=== PATIENT | male | born 1975 | race Two or more races ===

== ENCOUNTER 2020-06-12 17:08 | Inpatient (IN) | payer MEDICAID, OTHER ==
[~2020-06-12] VITALS: Ht 167.6 cm; Wt 55.3 kg
[2020-06-12] MEDS ORDERED: LORazepam 2 MG TABLET PO PRN (19:00)
[2020-06-12] MEDS ORDERED: ZOLPIDEM TARTRATE 10 MG TABLET PO PRN (19:00)
[2020-06-12] MEDS ORDERED: OLANZapine 5 MG RAPDIS TABLET PO PRN (19:00)
[2020-06-12 19:57] LABS: AMPHET/METH SCREEN,URINE NEGATIVE (NEGATIVE); BARBITURATE SCREEN, URINE NEGATIVE (NEGATIVE); BENZODIAZEPINES SCREEN,URINE NEGATIVE (NEGATIVE); CANNABINOID SCREEN,URINE NEGATIVE (NEGATIVE); COCAINE SCREEN,URINE NEGATIVE (NEGATIVE); METHADONE SCREEN, URINE NEGATIVE (NEGATIVE); OPIATE SCREEN,URINE NEGATIVE (NEGATIVE)
[2020-06-12 20:00] LABS: PHENCYCLIDINE SCREEN,URINE NEGATIVE (NEGATIVE)
[2020-06-12 21:33] LABS: APPEARANCE,URINE TURBID (CLEAR); BILIRUBIN,URINE NEGATIVE (NEGATIVE); GLUCOSE, URINE (UA) 250 mg/dL (NEGATIVE); KETONES,URINE NEGATIVE (NEGATIVE); LEUKOCYTE ESTERASE ,URINE NEGATIVE (NEGATIVE); NITRATE,URINE NEGATIVE (NEGATIVE); OCCULT BLOOD,URINE SMALL (NEGATIVE); PROTEIN,URINE NEGATIVE (NEGATIVE); UROBILINOGEN,URINE 0.2 mg/dL (<=1.0)
[2020-06-12 21:41] LABS: BACTERIA,URINE Few /HPF (None Seen); SQUAMOUS EPITHELIAL CELL,UR Few /LPF (None Seen); WBC,URINE 0-2 /HPF (0-5)
[2020-06-13 01:05] VITALS: BP 91/63
[2020-06-13] MEDS ORDERED: ACETAMINOPHEN 325 MG TABLET PO PRN (08:45)
[2020-06-13] MEDS ORDERED: CloNIDine HCL 0.1 MG TABLET PO PRN (08:45)
[2020-06-13] MEDS ORDERED: DOCUSATE SODIUM 100 MG CAPSULE PO PRN (08:45)
[2020-06-13] MEDS ORDERED: LOPERAMIDE HCL 2 MG CAPSULE PO PRN (08:45)
[2020-06-13] MEDS ORDERED: MAG HYDROX/AL HYDROX/SIMETH ES 30 ML SUSPENSION UDCUP PO PRN (08:45)
[2020-06-13] MEDS ORDERED: OMEPRAZOLE 20 MG CAPSULE PO PRN (08:45)
[2020-06-13] MEDS ORDERED: PETROLATUM,WHITE 28 GM JELLY TP PRN (08:45)
[2020-06-13] MEDS ORDERED: BACITRACIN 28.4 GM OINTMENT TP PRN (08:45)
[2020-06-13] MEDS ORDERED: ALBUTEROL SULFATE HFA 90 MCG/PUFF 8 GM INHALER IH PRN (08:45)
[2020-06-13] MEDS ORDERED: ONDANSETRON HCL 4 MG TABLET PO PRN (08:45)
[2020-06-13] MEDS ORDERED: IBUPROFEN 600 MG TABLET PO PRN (08:45)
[2020-06-13] MEDS ORDERED: MAGNESIUM HYDROXIDE SUSPENSION 30 ML UDCUP PO PRN (08:45)
[2020-06-13] MEDS ORDERED: BENZOCAINE/MENTHOL LOZENGE MM PRN (08:45)
[2020-06-13 08:48] VITALS: BP 117/73
[2020-06-13 16:09] VITALS: BP 100/62
[2020-06-14 06:28] VITALS: BP 109/71
[2020-06-14 08:11] VITALS: BP 110/61
[2020-06-14] MEDS: SERTRALINE HCL 50 MG TABLET PO SCH (15:23)
[2020-06-14 16:23] VITALS: BP 121/77
[2020-06-14] MEDS: RisperiDONE 3 MG TABLET PO SCH (20:56)
[2020-06-15 06:36] VITALS: BP 122/73
[2020-06-15 08:39] VITALS: BP 119/73
[2020-06-15] MEDS: SERTRALINE HCL 50 MG TABLET PO SCH (08:40)
[2020-06-15 16:30] VITALS: BP 91/55
[2020-06-15] MEDS: RisperiDONE 3 MG TABLET PO SCH (20:55)
[2020-06-16 05:20] VITALS: BP 108/72
[2020-06-16] MEDS ORDERED: SERT50TA12 PO (07:33)
[2020-06-16] MEDS ORDERED: RISP3TAB14 PO (07:33)
[2020-06-16 08:25] VITALS: BP 91/62
[2020-06-16] MEDS: SERTRALINE HCL 50 MG TABLET PO SCH (09:36)
== END 2020-06-16 14:57 | disposition home or self-care (01) | DRG 885 ==
LOC: EMS 17:08 → B2S 18:59 → UNDOADMIN 20:30 → B3A 21:48 → B2S 21:48
PROVIDERS: ADMIT Psychiatry & Neurology Psychiatry; ATTEND Psychiatry & Neurology Psychiatry
DX: F20.0 Paranoid schizophrenia (principal); F41.9 Anxiety disorder, unspecified; G47.00 Insomnia, unspecified; F17.200 Nicotine dependence, unspecified, uncomplicated